=== PATIENT | male | born 1975 | race Hispanic/Latino ===

== ENCOUNTER 2022-07-17 09:46 | Day surgery (SDC) | payer OTHER ==
[~2022-07-17] VITALS: Ht 170.2 cm; Wt 64.4 kg
[2022-07-17] VITALS (7 sets, daily range): BP systolic 101–132; BP diastolic 72–84
[~2022-07-17 09:46] MED LIST: ATOR10TA69 PO; CETI10TA87 PO; LOSA50TA64 PO
[2022-07-17 10:42] LABS: HEMATOCRIT 45.4 % (42-54); MEAN CORPUSCULAR HEMOGLOBIN 30.6 pg (27.0-33.0); MEAN CORPUSCULAR HGB CONC 36.6 g/dL (32.0-36.0); MEAN CORPUSCULAR VOLUME 83.6 fL (79-99); PLATELET COUNT (AUTO) 346 K/uL (130-400); RED BLOOD CELL COUNT(AUTO) 5.43 MIL/uL (4.50-6.20); WHITE BLOOD COUNT (AUTO) 14.8 K/uL (4.8-10.8)
[2022-07-17] MEDS ORDERED: 0.9%NACL 1000ML 1,000 ML IV ONE (10:58)
[2022-07-17 11:02] LABS: INR 1.01 (0.85-1.15)
[2022-07-17 11:03] LABS: PARTIAL THROMBOPLASTIN TIME 27.4 SEC (26.3-35.5)
[2022-07-17 11:10] LABS: CREATININE 0.9 mg/dL (0.5-1.5); POTASSIUM 3.7 mmol/L (3.5-5.1)
[2022-07-17] MEDS ORDERED: PROPOFOL 10 MG/ML 20ML VIAL IV ONE ×3 (12:41→12:52)
[2022-07-17] MEDS ORDERED: PHENYLEPHRINE HCL 10 MG/ML 1ML VIAL IV ONE (12:56)
== END 2022-07-17 15:15 | disposition home or self-care (01) ==
LOC: ENDO 09:46 → DAH 09:46 → ENDO 15:15
PROVIDERS: ATTEND Internal Medicine Gastroenterology
DX: K62.5 Hemorrhage of anus and rectum (principal); R63.4 Abnormal weight loss; K21.00 Gastro-esophageal reflux disease with esophagitis, without bleeding; K29.00 Acute gastritis without bleeding; K64.1 Second degree hemorrhoids; I10 Essential (primary) hypertension; E78.5 Hyperlipidemia, unspecified; B96.81 Helicobacter pylori [H. pylori] as the cause of diseases classified elsewhere; Z87.891 Personal history of nicotine dependence; Z79.899 Other long term (current) drug therapy; Z72.89 Other problems related to lifestyle; Z80.0 Family history of malignant neoplasm of digestive organs; Z20.822 Contact with and (suspected) exposure to COVID-19
CPT/HCPCS: 87635; 80048; 85027; 85610; 85730; 36415; 43239; 45378; C9803; J7030 ×2; J2704 ×3; J2370; A4620; A4215 ×2; A4223; A7002; A4222; A4221; A4663; A4216; A4606